=== PATIENT | female | born 1985 | race Caucasian/White ===

== ENCOUNTER 2025-06-10 20:39 | Emergency (ER) | payer OTHER ==
[~2025-06-10] VITALS: Ht 149.9 cm; Wt 54.0 kg
[2025-06-10 20:48] VITALS: O2SAT 98
[2025-06-10] MEDS ORDERED: IBUPROFEN 600MG TABLET PO ONE (21:15)
[2025-06-10] MEDS: IBUPROFEN 600MG TABLET PO SCH (21:59)
[2025-06-10] MEDS ORDERED: IBUP-2029 MT (23:04)
[2025-06-10] MEDS ORDERED: METH-653 MT (23:04)
[2025-06-10 23:33] VITALS: BP 113/56; PULSE 72; RESP 13; TEMP 36.7; O2SAT 98
== END 2025-06-10 23:35 | disposition home or self-care (01) ==
LOC: ER 20:39
DX: S43.402A Unspecified sprain of left shoulder joint, initial encounter (principal); S20.219A Contusion of unspecified front wall of thorax, initial encounter; S83.92XA Sprain of unspecified site of left knee, initial encounter; W22.8XXA Striking against or struck by other objects, initial encounter; Y93.89 Activity, other specified; Y92.89 Other specified places as the place of occurrence of the external cause; Y99.8 Other external cause status
CPT/HCPCS: 71045; 73030; 73560; 99284